=== PATIENT | female | born 1990 | race African-American/Black ===

== ENCOUNTER 2020-12-03 15:21 | Emergency (ER) | payer MEDICARE ==
[~2020-12-03] VITALS: Ht 152.4 cm; Wt 73.6 kg
[2020-12-03 15:45] VITALS: Ht 152.4 cm; Wt 73.6 kg
[2020-12-03] MEDS ORDERED: LISINOPRIL10 MG PO (15:46)
[2020-12-03] MEDS ORDERED: CEPHALEXIN500 M1 PO (17:47)
[2020-12-03] MEDS ORDERED: ACETIC ACID15 ML RIGHT EAR (17:48)
[2020-12-03] MEDS ORDERED: CIPRODEX OTIC7.5 ML LEFT EAR (17:48)
[2020-12-03] MEDS ORDERED: NORVASC5 MG PO (18:57)
== END 2020-12-03 19:09 | disposition home or self-care (01) ==
LOC: D.ER 15:21
DX: H60.92 Unspecified otitis externa, left ear (principal); T78.3XXA Angioneurotic edema, initial encounter; I10 Essential (primary) hypertension